=== PATIENT | female | born 1990 | race Caucasian/White ===

== ENCOUNTER 2017-06-30 11:14 | Inpatient (IN) | payer MEDICAID ==
[~2017-06-30] VITALS: Ht 160 cm; Wt 88.6 kg
[~2017-06-30 11:14] MED LIST: MOTRIN 600600 MG/TAB PO; PERCOCET 325 MG1 TA2 PO; PRENATAL MVI
[2017-07-04] VITALS (35 sets, daily range): BP systolic 106–156; BP diastolic 59–95; PULSE 75–109; TEMP 97.7–98.4
[2017-07-04 07:47] LABS: BASO % 0.3 % (0.0-2.0); EOS # 0.1 (0.0-0.7); EOS % 0.8 % (0-4.0); GRAN # 6.8 (1.4-6.5); GRAN % 70.6 % (42.2-75.2); HEMATOCRIT 37.4 % (37.0-47.0); HEMOGLOBIN 12.8 g/dl (12.5-16.0); LYMPH # 1.8 (1.2-3.4); LYMPH % 18.8 % (20.0-51.0); MEAN CELL VOLUME 87 fl (80.0-100.0); MEAN CORPUSCULAR HEMOGLOBIN 30 pg (27.0-31.0); MEAN CORPUSCULAR HGB CONC 34 g/dl (33.0-37.0); MEAN PLATELET VOLUME 12.3 fl (7.4-10.4); MONO # 0.8 (0.1-0.6); MONO % 8.4 % (1.7-9.3); PLATELET COUNT 146 K/mm3 (130-400); RED BLOOD COUNT 4.29 M/mm3 (4.10-5.30); REDCELL DISTRIBUTION WIDTH-CV 14.5 % (11.5-14.5)
[2017-07-04 08:00] LABS: TRICYCLIC ANTIDEPRESS URINE NEGATIVE
[2017-07-04] MEDS ORDERED: MOTRIN 800800 MG/TAB PO (09:49)
[2017-07-04] MEDS ORDERED: PERCOCET 325 MG1 TA2 PO (09:49)
[2017-07-05 00:30] VITALS: BP 127/74; PULSE 78; TEMP 97.6
[2017-07-05 07:30] VITALS: BP 115/56; PULSE 84; TEMP 97.8
[2017-07-05] MEDS ORDERED: NEWMANS TOP (11:26)
[2017-07-05 13:00] VITALS: BP 112/73; PULSE 99; TEMP 97.8
== END 2017-07-05 17:45 | disposition home or self-care (01) | DRG 775 ==
LOC: LDR 07-04 06:06 → OB 07-04 06:48 → LDR 07-04 11:13 → OB 07-04 17:30
PROVIDERS: Obstetrics & Gynecology
PROC: 10E0XZZ Delivery of Products of Conception, External Approach (ICD-10-PCS; principal; 2017-07-04)
PROC: 0KQM0ZZ Repair Perineum Muscle, Open Approach (ICD-10-PCS; 2017-07-04)
PROC: 3E033VJ Introduction of Other Hormone into Peripheral Vein, Percutaneous Approach (ICD-10-PCS; 2017-07-04)
DX: O48.0 Post-term pregnancy (principal); O70.1 Second degree perineal laceration during delivery; Z3A.40 40 weeks gestation of pregnancy; Z37.0 Single live birth
CPT/HCPCS: J2590; J7120

== ENCOUNTER 2017-07-08 18:49 | Emergency (ER) | payer MEDICAID ==
[~2017-07-08] VITALS: Ht 160 cm; Wt 87.5 kg
[~2017-07-08 18:49] MED LIST changes: +MOTRIN 800800 MG/TAB PO; +NEWMANS TOP
[2017-07-08 19:07] VITALS: BP 127/65; TEMP 98
[2017-07-08 21:37] VITALS: PULSE 70
== END 2017-07-08 21:38 | disposition home or self-care (01) ==
LOC: COL.ER 18:49
DX: O90.89 Other complications of the puerperium, not elsewhere classified (principal); R60.0 Localized edema; Z88.0 Allergy status to penicillin

== ENCOUNTER 2019-05-02 07:01 | Inpatient (IN) | payer OTHER ==
[2019-05-02] VITALS (31 sets, daily range): BP systolic 107–138; BP diastolic 55–85; PULSE 64–103; TEMP 97.6–98
[~2019-05-02] VITALS: Ht 160 cm; Wt 92.7 kg
--- NOTE | 2019-05-02 07:15 | NUR ---
Patient ambulates to LR6 with significant other and mother, changed into gown and voids for UA, FHR/TOCO monitors placed and explained. Patient denies any regular contractions, leaking of fluid, vaginal bleeding, or decreased movement. Plan of care discussed and patient oriented to room. 0730: IV started in left hand, blood obtained and to lab, LR infusing. Assessment completed and postpacket gone over.
--- NOTE | 2019-05-02 07:45 | NUR ---
Pitocin induction discussed with patient and patient agrees with plan. 0745: Pitocin started per protocol at 2Mu. 0850: at bedside and assessing patient and FHR strip. 0855: SVE per physician and / and AROM at this time with clear fluid noted. Dr. Hernandez states patient can have epidural when she wants. Plan of care discussed.
[2019-05-02 08:19] LABS: BASO % 0.2 % (0.0-2.0); EOS # 0.1 (0.0-0.7); EOS % 1.1 % (0-4.0); GRAN # 5.3 (1.4-6.5); GRAN % 65.6 % (42.2-75.2); HEMOGLOBIN 12.7 g/dl (12.5-16.0); LYMPH # 1.9 (1.2-3.4); LYMPH % 23.1 % (20.0-51.0); MEAN CELL VOLUME 89 fl (80.0-100.0); MEAN CORPUSCULAR HEMOGLOBIN 31 pg (27.0-31.0); MEAN CORPUSCULAR HGB CONC 34 g/dl (33.0-37.0); MEAN PLATELET VOLUME 12.2 fl (7.4-10.4); MONO # 0.7 (0.1-0.6); MONO % 8.9 % (1.7-9.3); PLATELET COUNT 180 K/mm3 (130-400); RED BLOOD COUNT 4.15 M/mm3 (4.10-5.30); REDCELL DISTRIBUTION WIDTH-CV 13.5 % (11.5-14.5)
[2019-05-02 08:28] LABS: TRICYCLIC ANTIDEPRESS URINE NEGATIVE
--- NOTE | 2019-05-02 09:40 | NUR ---
Patient requesting epidural and T.Margy [employer] at notified. 0958: Patient sitting up and on edge of bed and T.[place] [employer] at bedside. Difficulty tracing FHR due to patients position. 1013: Test dose given and patient tolerated well. 1020: Patient repositioned and plan of care/safety precautions gone over. 1103: Kong catheter placed and patient tolerates well. SVE-3-4/80/-2 Patient right lateral with left leg resting in stirrup. 1145: Dr. Hernandez at bedside and SVE per physician /-[address] Hernandez sitting at nurses station and reviewing FHR strip. 1230: Dr. Hernandez at bedside and SVE-9-10 per physician. FHR tracing recurrent variable decelerations with return to baseline. 1238: SVE per physician-10/100/0 1240: Kong catheter removed and patient tolerates well. Patient prepped and begins to push with contractions. Dr. Hernandez orders to increase pitocin to 14mU. FHR tracing recurrent variable decelerations. 1245: orders to stop pushing and turn patient to side to allow baby to rotate. Bed back together and patient turned right lateral.
--- NOTE | 2019-05-02 13:00 | NUR ---
Patient turned left lateral and patient states she is feeling more pressure. FHR continues to trace variable/early decelerations. Dr. Hernandez at nurses station reveiwing FHR strip. 1315: SVE per Dr. Hernandez-10/+1 Patient prepped for delivery and pericare done. Patient begins to push with each contraction per Dr. Hernandezs order. Varible decelerations noted. 1322: Spontaneous vaginal delivery of viable female -head followed by body. to patient abdomen and bulb syringed . Tere RN assumes care of . Cord clamped by Dr. Hernandez and clamoed by FOGerman. Cord blood obtained. 1325: Spontaneous delivery of placenta and pitocin bolus started at 333mU. Dr. Hernandez repairs laceration Fundal massage done/firm/bleeding WNL Patient repositioned and ice pack placed to perineum. Plan of care discussed.
--- NOTE | 2019-05-02 16:00 | NUR ---
Patient dangles feet on edge of bed, epidural catheter removed and patient tolerates well. Patient to wheelchair with assist and to bathroom. Voids, pericare done, new gown, underwear, pad on. Patient to new room via wheelchair and assisted to bed. Oriented to and white board gone over. Plan of care discussed.
[2019-05-02] MEDS ORDERED: MOTRIN 800800 MG/TAB PO (16:39)
[2019-05-03 01:10] VITALS: BP 119/67; PULSE 85; TEMP 98.2
[2019-05-03 05:15] VITALS: BP 115/84; PULSE 73; TEMP 97.8
[2019-05-03 08:10] VITALS: BP 118/68; PULSE 90; TEMP 98.5
--- NOTE | 2019-05-03 09:18 | NUR ---
The patient had a positive UDS for cannabinoids. Cord blood pending. CPS report # [id number].
--- NOTE | 2019-05-03 09:37 | NUR ---
Initial visit; Patient and family thanked [employer] for offering congratulations and God's blessings for the of their daughter. [employer] thanked family for choosing [facility].
--- NOTE | 2019-05-03 10:16 | NUR ---
LOUIS wheatley responded to a high school social studies tutor consult for the patient due to admitted marijuana use and positive UDS. LOUIS wheatley met with the patient. The patient lives in [place] with the father of the kids. This is the patient's third child. The patient reports she has all the baby supplies she needs. The patient reports she has "great support" from FOBs and her parents, who live in [place]. The patient reports she used marijuana during for nausea. The patient reports she will not use marijuana while . The patient declined drug treatment. LOUIS wheatley provided community resources and answered any questions. LOUIS wheatley collaborated the above information with the patient's nurse.
[2019-05-03 13:04] VITALS: BP 106/64; PULSE 88; TEMP 98.1
--- NOTE | 2019-05-03 15:10 | NUR ---
Patient discharge instructions reviewed with her and spouse. Verbalize understanding. Discharge teaching reviewed and questions answered. Patient, and spouse escorted out to vehicle.
--- NOTE | 2019-05-06 10:31 | NUR ---
side door worker filed a CPS report #[id number] as 's cord blood was positive for cannabinoids.
== END 2019-05-03 15:25 | disposition home or self-care (01) | DRG 807 ==
LOC: OB 07:01 → LDR 07:01 → OB 09:19
PROVIDERS: ADMIT Obstetrics & Gynecology
PROC: 10E0XZZ Delivery of Products of Conception, External Approach (ICD-10-PCS; principal; 2019-05-02)
PROC: 0KQM0ZZ Repair Perineum Muscle, Open Approach (ICD-10-PCS; 2019-05-02)
PROC: 10907ZC Drainage of Amniotic Fluid, Therapeutic from Products of Conception, Via Natural or Artificial Opening (ICD-10-PCS; 2019-05-02)
PROC: 3E033VJ Introduction of Other Hormone into Peripheral Vein, Percutaneous Approach (ICD-10-PCS; 2019-05-02)
DX: O48.0 Post-term pregnancy (principal); Z37.0 Single live birth; O99.62 Diseases of the digestive system complicating childbirth; Z3A.40 40 weeks gestation of pregnancy; K21.9 Gastro-esophageal reflux disease without esophagitis; O70.1 Second degree perineal laceration during delivery; O21.0 Mild hyperemesis gravidarum; O69.81X0 Labor and delivery complicated by cord around neck, without compression, not applicable or unspecified
CPT/HCPCS: J2590; J7120